=== PATIENT | male | born 1950 | race Hispanic/Latino ===

== ENCOUNTER 2017-01-07 07:54 | Emergency (ER) | payer OTHER ==
--- NOTE | 2017-01-07 08:08 | C.PDOC ---
History Of Present Illness 66 y/o M BIBEMS after witnessed arrest and collapse at workplace ([employer]). EMS reports on their arrival, CPR was being begun. Patient with vomitus in mouth, reportedly difficult intubation, alternate airway placed with end tidal of 50. En route, initially asystole, then vfib, then asystole. 3 defibs, 7 epi, 300 amiodarone, and bicarb administered. Time Seen by Provider: 01/07/17 08:06 Chief Complaint (Nursing): Cardiac Arrest Past Medical History Family History: States: Unknown Family Hx Review Of Systems Review Of Systems: ROS cannot be obtained secondary to pt's inabilty to answer questions. Physical Exam - Physical Exam Additional Physical Exam Comments: Constitutional: With advanced airway, unresponsive. Head: Normocephalic. Eyes: No corneal reflex. ENT: Vomitus around mouth, with airway in place, nasal trumpet in place. Neck: Supple. Cardiovascular: Pulseless when CPR not ongoing. Chest: Arvind II in place. Respiratory: Bilateral breath sounds with BVM. GI: Soft. Musculoskeletal: No swelling of extremities. Skin: [place]. Neurologic: Unresponsive. Medical Decision Making Medical Decision Making: Patient pulseless on arrival and asystole on monitor. Skin vallejo, no neurological response. Bedside US shows no tension pneumo, cardiac tamponade, or any cardiac contractility. I pronounced patient, time of 8:04am. Informed family members who arrived shortly afterwards of patient's . Disposition - Disposition Disposition: WITH WITHOUT AUTOPSY Disposition Time: 08:04 Condition: - Clinical Impression Clinical Impression: Cardiac arrest Critical Care Time - Critical Care Note Total Time (in mins): 15 Comments: Required my immediate attention upon arrival due to life threatening condition. Documented critical care: time excludes all time spent performing seperately billable procedures.
[2017-01-07 08:12] VITALS: BMI 34.0
== END 2017-01-07 10:30 ==
LOC: C.ER 07:54
DX: I46.9 Cardiac arrest, cause unspecified (principal)